=== PATIENT | female | born 1975 | race Caucasian/White ===

== ENCOUNTER 2021-09-04 09:36 | Outpatient (CLI) | payer OTHER, SELFPAY ==
--- NOTE | 2021-09-04 09:52 | US_ITS ---
STUDY: ULTRASOUND OF THE FEMALE PELVIS - COMPLETE REASON FOR EXAM: Female, 46 years old. STRESS INC LMP: 09/02/2021 TECHNIQUE: Transabdominal TECHNICAL QUALITY: Adequate. COMPARISON: None. FINDINGS: The uterus is retroverted and is in a midline position. The uterus measures 8.9 cm by 5.6 cm x 4.1 cm. Normal uterine cervix. The endometrium measures 14 mm in thickness, and is hyperechoic. There is no demonstrated endometrial mass. There is no demonstrated myometrial mass. I.U.D. - The patient does not have an I.U.D. The right ovary is visualized. The right ovary measures 2.8 cm x 2 cm x 1.4 cm. There is no right ovarian cyst or ovarian mass. There is no visualized right adnexal mass or complex lesion. There is normal arterial and normal venous vascularity. The left ovary is visualized. The left ovary measures 3.2 cm x 2.1 cm x 2 cm. There is no left ovarian cyst or ovarian mass. There is no visualized left adnexal mass or complex lesion. There is normal arterial and normal venous vascularity. There is no fluid in the cul-de-sac. The pre void volume of the bladder was 888 ml. US/Pelvic (Non ) IMPRESSION: Normal female pelvis. Electronically Signed: Sae Chapin MD at 15:43 EST ,
== END 2021-09-04 23:59 | disposition home or self-care (01) ==
LOC: US 09:50
PROVIDERS: PCP Pediatrics; Referring Provider Urology; Visit Provider Urology
DX: N39.3 Stress incontinence (female) (male) (principal)
CPT/HCPCS: 76856